=== PATIENT | female | born 1970 | race African-American/Black ===

== ENCOUNTER 2018-03-16 12:21 | Outpatient (CLI) | payer BC ==
--- NOTE | 2018-03-16 14:39 | ULT ---
RIGHT BREAST ULTRASOUND: Date: 03/16/18 HISTORY: Small, 3-4 mm, nodular density noted on mammogram study in approximately the 12:00 position of the ri ght breast. FINDINGS: Real-time imaging of the right breast in the area of concern does demonstrate a small, 4.0 mm, cyst. IMPRESSION: BIRADS Category 2 - Benign findings. Routine mammographic follow-up recommended. POS: OFF
--- NOTE | 2018-03-16 14:41 | ULT ---
LEFT BREAST ULTRASOUND: Date: 03/16/18 HISTORY: Patient reports a palpable abnormality, although not able to definitely localize it. On today's area, she localized an area at the 6:00 position. In addition, on the mammogram study, at approximately th e 8-9:00 position, a circumscribed mass was demonstrated. FINDINGS: Real-time imaging in the area of patient's concern failed to show any cystic or solid mass. At the 9:00 position of the left breast, approximately 2.0 cm from the nipple, there is a benign-appe aring cyst measuring 1.5 cm. This corresponds to the mammographic abnormality. IMPRESSION: BIRADS Category 2 - Benign findings. Routine mammographic follow-up is recommended. POS: OFF
== END 2018-03-16 12:22 | disposition home or self-care (01) ==
LOC: BICMAMMO 12:21
PROVIDERS: ATTEND Family Medicine
DX: N63.20 Unspecified lump in the left breast, unspecified quadrant (principal); N63.10 Unspecified lump in the right breast, unspecified quadrant
CPT/HCPCS: 77066; G0279

== ENCOUNTER 2018-12-08 09:31 | Observation (INO) | payer BC ==
--- NOTE | 2018-12-08 09:52 | CT ---
Exam: Head CT without contrast HISTORY: Level 1 stroke. Numbness of the right side, intermittent. COMPARISON: none FINDINGS: Hemorrhage: No intraparenchymal hemorrhage or extra-axial hematoma. Brain parenchyma: Cortical gaona-white matter differentiation is preserved. No mass effect or midline shift. Basilar cisterns are patent. Ventricular system: Ventricles and sulci are patent and symmetric. Calvarium: Intact. Sinuses and mastoid air cells: Minimal mucosal thickening of the ethmoid air cells IMPRESSION: No acute intracranial process. Results study discussed with Dr. Otero 12/08/2018 at 9:49 AM Code CR
[2018-12-08 10:01] LABS: #Basophils 0.1 thou/uL (0.0-0.2); #Eosinphils 0.1 thou/uL (0.0-0.7); #Lymphocytes 3.6 thou/uL (1.20-3.40); #Monocytes 0.7 thou/uL (0.11-0.59); #Neutrophils 3.6 thou/uL (1.40-6.50); %Basophils 1.2 % (0.0-1.0); %Eosinophils 1.7 % (0.0-10.0); %Lymphocytes 43.9 % (21.0-51.0); %Neutrophils 44.2 % (42.0-75.0); Hemoglobin 13.9 g/dL (12.0-16.0); Mean Corpuscular HGB CONC 33.4 g/dL (32.0-36.0); Mean Corpuscular Hemoglobin 30.6 pg (27.0-31.0); Mean Corpuscular Volume 91.7 fL (78.0-98.0); Mean Platelet Volume 7.9 fL (7.4-10.4); Platelet Count 199 thou/uL (130-400); RBC Distribution Width 12.7 % (11.5-14.5); Red Blood Cell (RBC) Count 4.54 mill/uL (4.20-5.40); White Blood Cell (WBC) Count 8.1 thou/uL (4.8-10.8)
[2018-12-08 10:07] LABS: Prothrombin Time 13.4 SEC (12.0-14.7)
[2018-12-08 10:08] LABS: PTT 28.5 SEC (22.9-36.1)
--- NOTE | 2018-12-08 10:12 | CT ---
Exam: CT ANGIOGRAM OF THE HEAD CT ANGIOGRAM OF THE NECK: HISTORY: Intermittent right-sided numbness. TECHNIQUE: CT angiogram of the head and neck are performed in the axial plane. Three-dimensional refo rmatted images are submitted for interpretation. FINDINGS: Postcontrast head CT: Cortical gaona-white matter differentiation is preserved. Bilateral orbits are unremarkable. Aerodigestive tract is patent. No mucosal abnormality. Note is mad e of a torus villi palatini. Limited evaluation for masses in the oral cavity due to dental amalgam artifact. Grossly, the midline fatty raphae of the tongue appears to be preserved. Symmetric attenuation of the parotid and submandibular glands. Symmetric attenuation sternocleidomastoid muscles. No evidence of lymphadenopathy by size criteria. Fullness of the thyroid isthmus. Upper mediastinum is unremarkable. Dependent atelectatic changes lung parenchyma. Neck CT angiogram: Visualized aortic arch is unremarkable. Right carotid: The right carotid artery origin, common carotid artery, carotid bifurcation, and inter nal carotid artery have appropriate enhancement and luminal diameter. Left carotid: Left carotid artery origin, common carotid artery, carotid bifurcation, and internal ca rotid artery have appropriate enhancement. Bilateral cervical vertebral arteries are patent throughout their course of the neck. Bilateral subcl dony arteries are grossly unremarkable Head CT angiogram: Slightly limited evaluation due to poor contrast enhancement. Distal cervical and intracranial computer science intern al carotid arteries appear to have appropriate enhancement and luminal diameter. Anterior circulation: Bilateral A1 and M1 segments as well as the proximal A2 segments and MCA branch es have appropriate enhancement and luminal diameter. Posterior circulation: Intracranial vertebral arteries supply a normal appearing basilar artery. Bila teral P1 segments have appropriate enhancement and luminal diameter. Limited evaluation of bilateral PICA artery origins. IMPRESSION: 1. No significant stenosis of the cervical carotid or vertebral arteries. 2. Limited evaluation of the CT angiogram of the head due to poor contrast opacification. Nevertheles s, no obvious occlusion at the level of the [place]. Results study discussed with Dr. Otero 12/08/2018 at 10:10 AM Code CR Transcribed Date/Time: 12/08/2018 10:28 AM
--- NOTE | 2018-12-08 10:52 | RAD ---
RADIOGRAPH CHEST 1 VIEW: DATE: 12-08-18 HISTORY: 48-year-old female with chest pain. FINDINGS: The visualized lung soto are clear. The cardiomediastinal silhouette and hilar shadows are normal. The lateral costophrenic angles are sharp. The osseous structures appear normal. There is no pneu mothorax. IMPRESSION: Negative. jn POS: CET
[2018-12-08 11:09] LABS: ALT (SGPT) 10 U/L (8-55); AST (SGOT) 16 U/L (5-34); Albumin 4.1 g/dL (3.5-5.0); Alkaline Phosphatase 87 U/L (40-150); Anion Gap 9 mmol/L (10-20); BUN (Urea Nitrogen) 9 mg/dL (7.0-18.7); Bilirubin, Total 0.4 mg/dL (0.2-1.2); CK (CPK) 93 U/L (29-168); Calc. Creatinine Clearance 0 mL/min (70-130); Carbon Dioxide 28 mmol/L (22-29); Chloride 102 mmol/L (98-107); Estimated GFR-MDRD 88; Globulin 3.4 g/dL (2.4-3.5); Glucose 84 mg/dL (70-105); Potassium 4.2 mmol/L (3.5-5.1); Protein, Total 7.5 g/dL (6.0-8.3); Sodium 135 mmol/L (136-145)
[2018-12-08] MEDS ORDERED: Aspirin Chewable 81 MG TAB ONE (11:47)
[2018-12-08] MEDS ORDERED: ISOVUE-370 76%-LOCM 1 ML ONE (13:21)
[2018-12-08 13:30] VITALS: BMI 32.2
[2018-12-08] MEDS ORDERED: Pregabalin 75 MG CAP PO SCH (20:45)
[2018-12-08] MEDS ORDERED: Nicotine 14 MG PATCH TOP SCH (20:45)
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
[2018-12-09] MEDS ORDERED: Pregabalin 75 MG CAP PO SCH (09:00)
--- NOTE | 2018-12-09 09:35 | MRI ---
Cervical spine MRI without contrast: 12/09/2018 COMPARISON: None HISTORY: Past history of C2 fracture, intermittent right-sided facial numbness for months TECHNIQUE: Multiplanar multisequence MR imaging of the cervical spine is provided without contrast FINDINGS: There is contour irregularity involving the C2 vertebral body, consistent with the patient' s history of remote fracture. The sagittal STIR imaging demonstrates no focal area of osseous marrow edema. There is no cervical spine anterolisthesis or retrolisthesis noted. C2-3: No significant central canal or neural foraminal stenosis C3-4: No significant central canal or neural foraminal stenosis C4-5: There is an annular tear in the right paracentral region. No significant central canal or neura l foraminal stenosis. Tiny right paracentral disc protrusion suspected. C5-6: No significant central canal or neural foraminal stenosis C6-7: No significant central canal or neural foraminal stenosis C7-T1: No significant central canal or neural foraminal stenosis. The cervical cord demonstrates normal signal intensity. IMPRESSION: No significant central canal or neural foraminal stenosis within the cervical spine.
--- NOTE | 2018-12-09 09:53 | MRI ---
Brain MRI with and without contrast: 12/09/2018 COMPARISON: None HISTORY: Facial paresthesia, evaluate for multiple sclerosis TECHNIQUE: Multiplanar multisequence MR imaging of the brain obtained with and without contrast FINDINGS: The diffusion weighted imaging demonstrates no evidence for acute infarction. Axial gradient echo imaging demonstrates no evidence for intracranial hemorrhage. The paranasal sinuses and mastoid air cells demonstrate minimal mucosal thickening of the anterior et hmoid air cells bilaterally and the left sphenoid sinus. There is no midline shift or mass effect. No ventricular enlargement. Arterial flow voids at the axial level of the skull base appear grossly unremarkable on the T2-weight ed imaging. The postcontrast imaging demonstrates no abnormal enhancement within the brain parenchyma. The FLAIR and T2-weighted imaging demonstrates no significant white matter signal abnormality. IMPRESSION: No acute findings.
[2018-12-09 11:36] VITALS: BP 119/85; TEMP 97.5
[2018-12-09] MEDS ORDERED: Gadobenate Dimeglumine 529 MG/1 ML (20ML VIAL) ONE (13:41)
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
[2018-12-09 16:18] LABS: ANA Symphony (Qualitative) Negative (Negative); ANA Symphony (Quantitative) 0.2 Ratio (< 0.7 Negative); dsDNA IgG Antibody Less than 0.5 IU/mL (<10 Negative)
--- NOTE | 2018-12-12 16:32 | EKG ---
Test Reason : Blood Pressure : / mmHG Vent. Rate : 072 BPM Atrial Rate : 072 BPM P-R Int : 140 ms QRS Dur : 068 ms QT Int : 356 ms P-R-T Axes : 066 -02 020 degrees QTc Int : 389 ms Normal sinus rhythm Normal ECG Confirmed by BRENDAN PARKER, BROOKE ([id number]), news videotape editor GRETCHEN ROJAS ([id number]) on 12/12/2018 4:32:22 PM Referred By: Confirmed By:BROOKE CARDONA MD
== END 2018-12-09 13:20 | disposition home or self-care (01) ==
LOC: ERS 09:31 → 2SE 11:24
PROVIDERS: ADMIT Family Medicine; ATTEND Family Medicine
DX: R20.2 Paresthesia of skin (principal); R25.3 Fasciculation; F41.9 Anxiety disorder, unspecified; G56.01 Carpal tunnel syndrome, right upper limb; F17.210 Nicotine dependence, cigarettes, uncomplicated; Z87.81 Personal history of (healed) traumatic fracture; Z88.2 Allergy status to sulfonamides
CPT/HCPCS: 36415; 36416; 70450; 70496; 70498; 70553; 71045; 72141; 80053; 82550; 84484; 85025; 85610; 85652; 85730; 86038; 86140; 86225; 86850; 86900; 86901; 90471; 90732; 93005; 94760; G0009; G0378

== ENCOUNTER 2023-09-14 10:30 | Emergency (ER) | payer BC ==
[2023-09-14] MEDS ORDERED: Orphenadrine Citrate 60 MG/2 ML VIAL ONE (11:52)
[2023-09-14] MEDS ORDERED: Ketorolac Tromethamine 30 MG (1 mL) VIAL ONE (11:52)
== END 2023-09-14 13:29 | disposition home or self-care (01) ==
LOC: ERS 10:30
DX: M54.50 Low back pain, unspecified (principal); F17.210 Nicotine dependence, cigarettes, uncomplicated
CPT/HCPCS: 72100; 96372; J1885; J2360

== ENCOUNTER 2024-12-14 12:06 | Emergency (ER) | payer BC ==
[2024-12-14] MEDS ORDERED: Ketorolac Tromethamine 30 MG (1 mL) VIAL ONE (12:33)
== END 2024-12-14 12:31 | disposition home or self-care (01) ==
LOC: ERS 12:06
DX: M54.50 Low back pain, unspecified (principal); F17.210 Nicotine dependence, cigarettes, uncomplicated
CPT/HCPCS: 96372; 99282; J1885